=== PATIENT | male | born 1995 | race Caucasian/White ===

== ENCOUNTER 2022-02-01 14:22 | Emergency (ER) | payer MEDICAID ==
[~2022-02-01] VITALS: Ht 167.6 cm; Wt 75.0 kg
[2022-02-01 14:34] VITALS: BP 154/85
[2022-02-01] MEDS ORDERED: TETANUS, DIPHTHERIA, PERTUSSIS VAC/PF 0.5ML (>10YR OLD) IM ONE (16:15)
[2022-02-01] MEDS ORDERED: BACITRACIN ZINC OINT UDPKT TOP ONE (16:15)
[2022-02-01] MEDS ORDERED: LIDOCAINE HCL/PF 1% 10 MG/ML 5ML VIAL INFIL ONE (16:15)
[2022-02-01] MEDS ORDERED: ACETAMINOPHEN 325MG TABLET PO ONE (16:15)
== END 2022-02-01 18:10 | disposition home or self-care (01) ==
LOC: ER 14:22
DX: S61.215A Laceration without foreign body of left ring finger without damage to nail, initial encounter (principal); W26.0XXA Contact with knife, initial encounter; Y93.89 Activity, other specified; Y92.018 Other place in single-family (private) house as the place of occurrence of the external cause
CPT/HCPCS: 12001; 90715; 99282; J3490; Z7610